=== PATIENT | female | born 1975 | race African-American/Black ===

== ENCOUNTER 2018-07-19 11:30 | Emergency (ER) | payer OTHER ==
--- NOTE | 2018-07-19 11:47 | PDOC ---
History of Present Illness - General Chief Complaint: Pain Stated Complaint: CHEST BURNING, Time Seen by Provider: 07/19/18 11:32 - History of Present Illness Initial Comments: 07/19/18 12:29 Chief complaint: Burning in the chest and swelling of the legs History of present illness: Patient has a long history of recurrent leg edema attributed to kidney disease and burning of the chest attributed to reflux. Today when she called her primary physician, because of the burning in the chest , she was referred to the emergency room. However, the patient relates that this burning is not any different than in the past Review of systems: Denies rachel chest pain, shortness of breath, abdominal pain , nausea, vomiting, diarrhea, visual or focal neurologic symptoms, unsteadiness of gait, vaginal bleeding or discharge, urinary tract symptoms. Denies recent headache, URI symptoms, sore throat, cough. Past medical history: Complicated past medical history including left kidney mass of uncertain etiology, being followed by urologist, most recent CAT scan was unable to be performed due to reaction to the dye, and she has a MRI scheduled for July 30 further evaluate the mass. Recurrent UTIs. Chronic anemia, with hemoglobin in the range of 8-11, followed by slat basket maker helper machine, etiology is uncertain, though no GI workup has been performed. Social history: No tobacco alcohol or drugs. Fully active and without disability. Drinks a lot of water because she feels hydration is good Family history: Reviewed and noncontributory including early coronary artery disease, metabolic diseases including diabetes, GI disease, rheumatologic disease including lupus. Physical exam: Alert and oriented well-developed well-nourished no acute distress cheerful and cooperative Afebrile, vital signs normal except for mildly elevated blood pressure of 148/ 104. PERRLA 4 mm, fundi benign with sharp disc margins good venous pulsations, and no hemorrhages or exudates ENT clear Neck supple without bruit mass or nodes Lungs clear with full breath sounds bilaterally. No wheezes rales or rhonchi CV S1 and S2 normal without murmur or gallop pulses full and symmetric no JVD or edema no bruits Abdomen nondistended. Bowel sounds normal. Soft without mass tenderness organomegaly. No CVAT Extremities: No clubbing or cyanosis. There is trace pedal edema bilaterally and symmetric. No posterior calf swelling or tenderness. No erythema or warmth. Neurological C2 to 12 intact. No focal sensory or motor deficits. Gait stable and unimpaired Skin clear, no rash, adequate turgor and wet mucous membranes Impression: Patient's burning in the chest is most likely due to acid reflux. She has been prescribed PPIs in the past but has discontinued them because she does not wish to be maintained on medication. Mild bilateral edema is most likely due to venous stasis. Etiology of kidney disease is uncertain but should be elucidated by MRI which is scheduled for later this month and for which she is followed up by her urologist. Etiology of anemia is uncertain. It was recommended that she see a mortgage servicing specialist and have colonoscopy to exclude the possibility of microscopic bleeding from an intestinal or colonic lesion. Plan: EKG, CBC and chemistries, cardiac enzymes, urinalysis, and referral back to urologist and slat basket maker helper machine, as well as mortgage servicing specialist for further evaluation and treatment. Past History - Past Medical History Allergies/Adverse Reactions: Allergies Allergy/AdvReac Type Severity Reaction Status Date / Time Iodinated Contrast- Oral and AdvReac Severe Verified 07/19/18 11:32 IV Dye coconut Allergy Rash Uncoded 07/19/18 11:32 shellfish Allergy Uncoded 07/19/18 11:32 Home Medications: Ambulatory Orders NK [No Known Home Medication] 07/19/18 Anemia: Yes Asthma: No Cancer: No Cardiac Disorders: No CVA: No COPD: No CHF: No Dementia: No Diabetes: No GI Disorders: Yes (GERD) Disorders: No HTN: No Hypercholesterolemia: No Liver Disease: No Seizures: No Thyroid Disease: No - Surgical History Abdominal Surgery: No Appendectomy: No Cardiac Surgery: No Cholecystectomy: No Lung Surgery: No Neurologic Surgery: No Orthopedic Surgery: Yes (ORIF Right Ankle) - Suicide/Smoking/Psychosocial Hx Smoking History: Never smoked Hx Alcohol Use: No Drug/Substance Use Hx: No Substance Use Type: None Hx Substance Use Treatment: No Cardiac Specific PMH - Complaint Specific PMHX Pacemaker: No *Physical Exam - Vital Signs Last Vital Signs Temp Pulse Resp BP Pulse Ox 99 F 82 20 143/92 100 07/19/18 11:31 07/19/18 13:50 07/19/18 13:50 07/19/18 13:50 07/19/18 13:50 Moderate Sedation - Procedure Monitoring Vital Signs: Procedure Monitoring Vital Signs Temperature 99 F 07/19/18 11:31 Pulse Rate 82 07/19/18 13:50 Respiratory Rate 20 07/19/18 13:50 Blood Pressure 143/92 07/19/18 13:50 O2 Sat by Pulse Oximetry (%) 100 07/19/18 13:50 ED Treatment Course - LABORATORY CBC & Chemistry Diagram: 07/19/18 12:37 07/19/18 12:37 - ADDITIONAL ORDERS Additional order review: Laboratory Results 07/19/18 07/19/18 07/19/18 12:37 12:37 12:37 Sodium Potassium Chloride Carbon Dioxide Anion Gap BUN Creatinine Creat Clearance w eGFR Random Glucose Calcium Total Bilirubin AST ALT Alkaline Phosphatase Creatine Kinase Troponin I < 0.03 Total Protein Albumin Urine Color Yellow Urine Appearance Slightly Urine pH 7.0 Ur Specific [place] 1.025 Urine Protein Negative Urine Glucose (UA) Negative Urine Ketones Negative Urine Blood Negative Urine Nitrite Negative Urine Bilirubin Negative Urine Urobilinogen 2.0 H Ur Leukocyte Esterase Negative Urine HCG, Qual Negative 07/19/18 12:37 Sodium 137 Potassium 3.6 Chloride 108 H Carbon Dioxide 24 Anion Gap 5 L BUN 9 Creatinine 0.5 L Creat Clearance w eGFR > 60 Random Glucose 98 Calcium 8.5 Total Bilirubin 0.4 AST 17 ALT 9 L Alkaline Phosphatase 56 Creatine Kinase 105 Troponin I Total Protein 7.4 Albumin 4.0 Urine Color Urine Appearance Urine pH Ur Specific [place] Urine Protein Urine Glucose (UA) Urine Ketones Urine Blood Urine Nitrite Urine Bilirubin Urine Urobilinogen Ur Leukocyte Esterase Urine HCG, Qual 07/19/18 12:37 RBC 4.14 MCV 69.7 L MCHC 30.8 L RDW 16.9 H MPV 8.5 Neutrophils % 58.6 Lymphocytes % 30.6 Monocytes % 9.6 Eosinophils % 0.7 Basophils % 0.5 Medical Decision Making - Medical Decision Making 07/19/18 12:38 EKG: Normal sinus rhythm, normal axes and intervals, no ST-T wave changes, normal EKG 07/19/18 14:28 CBC, chemistries, and cardiac enzymes without significant abnormalities other than hemoglobin of 8.9 with microcytic indices, rates is her normal hemoglobin. She will follow-up with her urologist for her kidney problem, her slat basket maker helper machine for her anemia, and consider mortgage servicing specialist for further evaluation of microcytic anemia. Fully ambulatory and in no distress at discharge to follow-up as directed. *DC/Admit/Observation/Transfer Diagnosis at time of Disposition: GERD (gastroesophageal reflux disease) Qualifiers: Esophagitis presence: esophagitis presence not specified Qualified Code(s): K21.9 - Gastro-esophageal reflux disease without esophagitis - Discharge Dispostion Disposition: HOME Condition at time of disposition: Stable Decision to Admit order: No - Referrals Referrals: Fazal Vidales MD [Staff Physician] - 1 week - Patient Instructions Printed Discharge Instructions: DI for Gastroesophageal Reflux Disease (GERD), DI for Edema Due to Venous Stasis Additional Instructions: Follow-up with your urologist and slat basket maker helper machine as directed Consider GI specialist, colonoscopy as recommended. - Post Discharge Activity
[2018-07-19 11:56] VITALS: TEMP 99; BMI 25.9
[2018-07-19 12:43] LABS: BASO % 0.5 % (0-2.0); EOS % 0.7 % (0-4.5); HEMATOCRIT 28.9 % (32.4-45.2); HEMOGLOBIN 8.9 GM/dl (10.7-15.3); LYMPH % 30.6 % (8-40); MCH 21.5 pg (25.7-33.7); MCHC 30.8 g/dl (32.0-36.0); MEAN CELL VOLUME 69.7 fl (80-96); MEAN PLT VOLUME 8.5 fl (7.5-11.1); MONO % 9.6 % (3.8-10.2); NEUT % 58.6 % (42.8-82.8); PLATELET COUNT 245 K/MM3 (134-434); RBC 4.14 M/mm3 (3.60-5.2); RDW 16.9 % (11.6-15.6); WHITE BLOOD COUNT 4.1 K/mm3 (4.0-10.8)
[2018-07-19 13:06] LABS: ALK PHOS 56 U/L (45-117); ANION GAP 5 MMOL/L (8-16); BILIRUBIN,TOTAL 0.4 mg/dl (0.2-1); BLOOD UREA NITROGEN 9 mg/dl (7-18); CALCIUM 8.5 mg/dl (8.5-10); CHLORIDE 108 mmol/L (98-107); CO2 24 mmol/L (21-32); CREATININE 0.5 mg/dl (0.55-1.3); GLUCOSE,RANDOM 98 mg/dl (74-106); POTASSIUM 3.6 mmol/L (3.5-5.1); SGOT/AST 17 U/L (15-37); SGPT/ALT 9 U/L (13-61); SODIUM 137 mmol/L (136-145); TOT PROT 7.4 g/dl (6.4-8.2)
[2018-07-19 13:16] LABS: URINE APPEARANCE Slightly; URINE BILIRUBIN Negative (NEGATIVE); URINE COLOR Yellow; URINE GLUCOSE (UA) Negative (NEGATIVE); URINE KETONE Negative (NEGATIVE); URINE LEUK ESTERASE Negative (NEGATIVE); URINE NITRITE Negative (NEGATIVE); URINE PROTEIN Negative (NEGATIVE)
[2018-07-19 13:19] LABS: ADD RBC MORPHOLOGY YES
[2018-07-19 14:25] VITALS: BP 143/92; PULSE 82
--- NOTE | 2018-07-19 15:14 | EKG ---
Test Reason : Blood Pressure : / mmHG Vent. Rate : 092 BPM Atrial Rate : 092 BPM P-R Int : 130 ms QRS Dur : 082 ms QT Int : 348 ms P-R-T Axes : 049 061 045 degrees QTc Int : 430 ms NORMAL SINUS RHYTHM NORMAL ECG NO PREVIOUS ECGS AVAILABLE Confirmed by CONCHA MARTIN, ONEIDA ([id number]) on 07/19/2018 3:14:14 PM Referred By: MATTHEW DANIELS Confirmed By:ONEIDA KERN MD
[2018-07-19 15:17] LABS: ANISOCYTOSIS 1+; PLATELET ESTIMATE ADEQUATE
== END 2018-07-19 14:40 | disposition home or self-care (01) ==
LOC: FER 11:30
DX: K21.9 Gastro-esophageal reflux disease without esophagitis (principal)
CPT/HCPCS: 36415; 80053; 81003; 82550; 84484; 84703; 85025; 93005; 99283-25